=== PATIENT | female | born 1975 | race Caucasian/White ===

== ENCOUNTER → 2017-01-19 | Outpatient (CLI) | payer OTHER ==
[2017-01-19 10:33] LABS: Basophils % (A) 1 %; CH 32.7; CHCM 32.3; Eosinophils # (A) 0.2 k/uL (0-0.7); Eosinophils % (A) 7 %; HCT 42.3 % (34.0-46.0); HDW 2.02; HGB 13.4 gm/dL (11.4-16.0); Luc # (Auto) 0.11; Luc % (Auto) 3; Lymphocytes # (A) 1.1 k/uL (1.0-4.8); Lymphocytes % (A) 29 %; MCH 32.1 pg (25.0-35.0); MCHC 31.5 g/dL (31.0-37.0); MCV 101.7 fL (80.0-100.0); Mean Platelet Volume 6.9; Monocytes # (A) 0.2 k/uL (0-1.0); Monocytes % (A) 7 %; Neutrophils % (A) 54 %; RBC 4.16 m/uL (3.80-5.40); RDW 11.6 % (11.5-15.5); WBC 3.7 k/uL (3.8-10.6); WBC (Perox) 3.77
[2017-01-19 10:50] LABS: ALT 51 U/L (9-52); AST 55 U/L (14-36); Alkaline Phosphatase 56 U/L (38-126); Anion Gap 10 mmol/L; Blood Urea Nitrogen 7 mg/dL (7-17); Calcium 9.7 mg/dL (8.4-10.2); Carbon Dioxide 27 mmol/L (22-30); Chloride 104 mmol/L (98-107); Cholesterol 205 mg/dL (<200); Glucose 94 mg/dL (74-99); HDL Cholesterol 97 mg/dL (40-60); Non-African American GFR(MDRD) >60 (>60 ml/min/1.73 sqM); Potassium 4.3 mmol/L (3.5-5.1); Sodium 141 mmol/L (137-145); Total Protein 7.2 g/dL (6.3-8.2); Triglycerides 114 mg/dL (<150)
== END | disposition home or self-care (01) ==
LOC: LABWHC1 10:12
PROVIDERS: ATTEND Internal Medicine
DX: Z00.00 Encounter for general adult medical examination without abnormal findings (principal)
CPT/HCPCS: 36415; 80053; 80061; 84443; 85025

== ENCOUNTER → 2017-05-05 | Outpatient (CLI) | payer OTHER ==
--- NOTE | 2017-05-05 19:31 | MR ---
EXAMINATION TYPE: MR lumbar spine wo con DATE OF EXAM: 05/05/2017 COMPARISON: NONE HISTORY: low back pain, pin in Right hip, pain for approx 1 -2 years TECHNIQUE: T1 and T2 axial and sagittal images of the lumbar spine are submitted. FINDINGS: There is no abnormal signal seen within the visualized paraspinal soft tissues. There is a levoscoliosis. Artifact is seen overlying the spinal cord on the sagittal images. No definite abnorma l intrinsic signal. At L1-2 there is no disc herniation or canal stenosis. Minimal right paracentral and lateral disc bul ging. No foraminal encroachment or nerve root impingement. At L2-3 there is no disc herniation or canal stenosis. No foraminal encroachment. At L3-4 there is mild hypertrophic change of the facets. Mild circumferential disc bulging with mild bilateral foraminal encroachment greater on the right. At L4-5 there is no disc herniation or canal stenosis. No foraminal encroachment. At L5-S1 there is no disc herniation or canal stenosis. Mild hypertrophic change of the facets. No fo raminal encroachment. IMPRESSION: 1. Levoscoliosis with very mild right paracentral and lateral disc bulging L1-L2 with no foraminal en croachment or nerve root impingement. 2. Mild circumferential disc bulging with mild bilateral foraminal encroachment greater on the right L3-L4. No nerve root impingement. 3. Prominence of signal within the left upper abdomen anterior to the tail the pancreas may represent distended stomach. Area not adequately visualized. If there is pain regarding the left upper abdomen consider CT or ultrasound.
== END | disposition home or self-care (01) ==
LOC: RADMRIMAIN 11:49
PROVIDERS: ATTEND Psychiatry & Neurology Neurology
DX: M51.26 Other intervertebral disc displacement, lumbar region (principal); M41.86 Other forms of scoliosis, lumbar region
CPT/HCPCS: 72148

== ENCOUNTER → 2017-07-30 | Outpatient (CLI) | payer OTHER ==
--- NOTE | 2017-08-03 07:31 | MM ---
Reason for exam: clinical finding. Baseline mammogram. History: Patient is nulliparous. Family history of breast cancer in maternal grandmother at age 40. Physical Findings: Nurse Summary: 0.5cm nodule in the left breast at 1-2 o'clock (nurse mj). [facility] Diagnostic Mammo w CAD BRADLY Bilateral CC and MLO view(s) were taken. ML view(s) were taken of the left breast. The breast tissue is extremely dense which could obscure a lesion on mammography. Finding: There is an equal density (isodense), round mass located 3 cm from the nipple in the upper outer quadrant, anterior position of the left breast consistent with complex cyst on outside ultrasound. These results were verbally communicated with the patient and result sheet given to the patient on 07/30/17. ASSESSMENT: Probably benign, BI-RAD 3 RECOMMENDATION: Ultrasound of the left breast in 6 months.
== END | disposition home or self-care (01) ==
LOC: RADMAMWWP 12:51
PROVIDERS: ATTEND Internal Medicine
DX: R92.8 Other abnormal and inconclusive findings on diagnostic imaging of breast (principal)

== ENCOUNTER 2018-01-29 17:55 | Emergency (ER) | payer OTHER ==
[2018-01-29 18:02] VITALS: BP 155/97; PULSE 107; RESP 18; TEMP 98.2
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
== END 2018-01-29 18:30 | disposition other institution (70) ==
LOC: EC 17:55
DX: F10.120 Alcohol abuse with intoxication, uncomplicated (principal); Y90.8 Blood alcohol level of 240 mg/100 ml or more; F17.200 Nicotine dependence, unspecified, uncomplicated
CPT/HCPCS: 99284

== ENCOUNTER → 2018-04-06 | Outpatient (CLI) | payer OTHER ==
--- NOTE | 2018-04-06 14:22 | XR ---
EXAMINATION TYPE: XR Hip Complete LT DATE OF EXAM: 04/06/2018 CLINICAL HISTORY: Chronic hip pain. History of old injury as child. TECHNIQUE: AP and frogleg views of the left hip are obtained. COMPARISON: None. FINDINGS: There is no acute fracture/dislocation evident in the left hip. Mild spurring at the aceta bulum is present. Joint spaces maintained. Some left-sided pelvic phleboliths are present. IMPRESSION: As above.
== END | disposition home or self-care (01) ==
LOC: RADXRMAIN 13:55
PROVIDERS: ATTEND Internal Medicine
DX: M76.892 Other specified enthesopathies of left lower limb, excluding foot (principal); I87.8 Other specified disorders of veins
CPT/HCPCS: 73502

== ENCOUNTER 2018-11-01 20:53 | Emergency (ER) | payer OTHER ==
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
[2018-11-01 21:00] VITALS: TEMP 98.4
[2018-11-02 04:22] VITALS: RESP 16
[2018-11-02 06:17] VITALS: BP 115/69; PULSE 90
== END 2018-11-02 06:18 | disposition home or self-care (01) ==
LOC: EC 20:53
DX: F10.129 Alcohol abuse with intoxication, unspecified (principal); R45.851 Suicidal ideations; R44.1 Visual hallucinations; F32.9 Major depressive disorder, single episode, unspecified; F17.200 Nicotine dependence, unspecified, uncomplicated; X78.8XXA Intentional self-harm by other sharp object, initial encounter
CPT/HCPCS: 82075; 99285